=== PATIENT | male | born 1950 | race Caucasian/White ===

== ENCOUNTER 2020-01-24 09:56 | Emergency (ER) | payer MEDICARE ==
[2020-01-24] MEDS ORDERED: Ketorolac Tromethamine 30 MG/ML VIAL ONE (10:17)
[2020-01-24] MEDS ORDERED: Morphine 4 MG/ML VIAL ONE ×2 (10:17→12:41)
[2020-01-24] MEDS ORDERED: Ondansetron PF 4 MG/2 ML Vial ONE (10:28)
--- NOTE | 2020-01-24 13:29 | MRI ---
MRI LUMBAR SPINE WITHOUT CONTRAST: Date: )01/24/2020 INDICATION: Low back pain. Left leg weakness and numbness. FINDINGS: Lumbar vertebra maintain normal height and alignment. Degenerative disc and end plate changes are see n at all levels of the lumbar spine. Loss of disc space is most pronounced at T12-L1, L1-2, L2-3, and L5-S1. Prominent anterior and lateral osteophytes are seen from the lumbar vertebra. Findings at each disc level are described: T12-L1: Mild diffuse disc bulge. Facet hypertrophy. Mild central canal stenosis. L1-2: Posterior disc bulge and posterior osteophytes are present. These changes flatten the thecal s ac. Moderate facet hypertrophy. Mild to moderate central canal stenosis. Mild bilateral foraminal brad rowing. L2-3: There is a broad based disc bulge. There is a large disc extrusion paracentrally to the left w ith inferior migration along the posterior L3 vertebra on the left. This extruded disc fragment measu res 8-10 mm AP dimension in the axial plane below the disc space. There is facet and ligamentous hype rtrophy. Severe central canal stenosis at the disc space. Inferior to the disc space, the extruded di sc fragment results in moderate central canal stenosis with compression of the thecal sac anteriorly and to the left due to this extruded fragment migrating inferiorly. There is mild left foraminal stenosis secondary to asymmetric bulge and facet hypertrophy at the L2-3 level. L3-4: Broad based disc bulge. Moderate facet and ligamentous hypertrophy with posterior epidural fat . These changes result in moderate to severe central canal stenosis. Mild left foraminal encroachment . L4-5: Mild diffuse disc bulge. Moderate facet hypertrophy. Mild to moderate central canal stenosis. No significant foraminal stenosis. L5-S1: Loss of disc space with mild disc bulge and posterior osteophytes. These changes flatten the thecal sac, and combined with facet hypertrophy, result in mild to moderate central canal stenosis. T here is bilateral foraminal stenosis more severe on the left. IMPRESSION: 1. Multilevel degenerative disc changes. A large extruded disc at L2-3 on the left with inferior jefferson ration produces severe central canal stenosis described above. 2. Moderate to severe central canal stenosis also seen at L3-4. 3. Central canal and foraminal stenosis seen at other levels as described above. POS: AGW
== END 2020-01-24 14:57 | disposition home or self-care (01) ==
LOC: ERS 09:56
DX: M51.26 Other intervertebral disc displacement, lumbar region (principal); M48.061 Spinal stenosis, lumbar region without neurogenic claudication; F17.210 Nicotine dependence, cigarettes, uncomplicated
CPT/HCPCS: 72148; 96374; 96375; 96376; J1885; J2270; J2405

== ENCOUNTER 2020-01-30 06:07 | Outpatient (CLI) | payer MEDICARE, MEDICAID, OTHER ==
[2020-01-30 16:30] LABS: Hemoglobin 15.7 g/dL (14.0-18.0); Mean Corpuscular HGB CONC 32.3 g/dL (32.0-36.0); Mean Corpuscular Hemoglobin 33.1 pg (27.0-31.0); Platelet Count 293 thou/uL (130-400); RBC Distribution Width 12.2 % (11.5-14.5); Red Blood Cell (RBC) Count 4.75 mill/uL (4.70-6.10); White Blood Cell (WBC) Count 8.4 thou/uL (4.8-10.8)
[2020-01-30 17:28] LABS: Anion Gap 16 mmol/L (10-20); BUN (Urea Nitrogen) 8 mg/dL (8.4-25.7); Calc. Creatinine Clearance 0 mL/min (70-130); Calcium 8.7 mg/dL (7.8-10.44); Carbon Dioxide 23 mmol/L (23-31); Chloride 104 mmol/L (98-107); Estimated GFR-MDRD Greater than 90; Glucose 83 mg/dL (80-115); Potassium 4.3 mmol/L (3.5-5.1); Sodium 139 mmol/L (136-145)
[2020-01-31 13:55] LABS: SARS-CoV-2 MS2 Positive; SARS-CoV-2 N Gene Negative; SARS-CoV-2 S Gene Negative; SARS-CoV-2 by NAA Not Detected (NotDetected); SARS-CoV-2 orf1ab Negative
== END 2020-01-30 06:08 | disposition home or self-care (01) ==
LOC: LABBT 06:07
PROVIDERS: ATTEND Neurological Surgery
DX: Z01.812 Encounter for preprocedural laboratory examination (principal); Z11.59 Encounter for screening for other viral diseases; M54.16 Radiculopathy, lumbar region
CPT/HCPCS: 80048; 85027; U0003; 87635

== ENCOUNTER 2020-02-04 07:19 | Day surgery (SDC) | payer MEDICARE, MEDICAID ==
[2020-01-30 17:17] VITALS: BMI 21.4
[2020-02-04] MEDS ORDERED: Ketorolac Tromethamine 30 MG/ML VIAL ONE (09:51)
[2020-02-04] MEDS ORDERED: Succinylcholine Chloride 20 MG/ML 10 ml SYRINGE FS ONE (09:51)
[2020-02-04] MEDS ORDERED: PHENYLEPHRINE-NS 100 MCG/ML 10 ML SYRINGE ONE (09:51)
[2020-02-04] MEDS ORDERED: Dexamethasone 20 MG/5 ML VIAL ONE (09:51)
[2020-02-04] MEDS ORDERED: Lidocaine 1% PF 5 ML VIAL ONE (09:51)
[2020-02-04] MEDS ORDERED: PROPOFOL 200 MG/20 ML VIAL ONE (09:51)
[2020-02-04] MEDS ORDERED: Fentanyl 100 MCG/2 ML VIAL ONE ×2 (10:25→12:00)
--- NOTE | 2020-02-04 11:48 | OP ---
DATE OF PROCEDURE: 02/04/2020 CLINICAL PRODUCT SPECIALIST: Anneliese Owens PA-C PROCEDURE PERFORMED: Left L2-L3 microdiskectomy. DESCRIPTION OF PROCEDURE: The patient was brought to the operating room and intubated. He was rolled in the prone position on gel-filled chest rolls. An incision was made exposing left L2 and L3 and the level was confirmed by x-ray. We performed left L2-L3 hemilaminectomy via ligament, identified a fragmented left L2-L3 disk herniation, removed in multiple pieces. A complete decompression of left L3 was achieved. The wound was extensively irrigated and MAC hemostasis was secured. Vancomycin powder was applied and the wound was closed in anatomic layers. Job ID: [id number]
[2020-02-04] MEDS ORDERED: Tamsulosin HCl 0.4 MG CAP ONE (12:19)
--- NOTE | 2020-02-04 16:09 | EKG ---
Test Reason : PREOP Blood Pressure : / mmHG Vent. Rate : 070 BPM Atrial Rate : 070 BPM P-R Int : 174 ms QRS Dur : 084 ms QT Int : 376 ms P-R-T Axes : 073 018 036 degrees QTc Int : 406 ms Normal sinus rhythm Normal ECG Confirmed by HUNTER COBB ([id number]) on 02/04/2020 4:08:36 PM Referred By: DAVID Confirmed By:HUNTER COBB
== END 2020-02-04 13:40 | disposition home or self-care (01) ==
LOC: SDC 07:19
PROVIDERS: ATTEND Neurological Surgery
PROC: 0SB20ZZ Excision of Lumbar Vertebral Disc, Open Approach (ICD-10-PCS; principal; 2020-02-04)
PROC: 01NB0ZZ Release Lumbar Nerve, Open Approach (ICD-10-PCS; 2020-02-04)
DX: M51.16 Intervertebral disc disorders with radiculopathy, lumbar region (principal); F17.210 Nicotine dependence, cigarettes, uncomplicated
CPT/HCPCS: 76000; 93005; 93010; J1100; J1885; J2704; J3010; J3370

== ENCOUNTER 2024-02-01 13:57 | Emergency (ER) | payer MEDICARE ==
[~2024-02-01 13:57] MED LIST: Iopamidol-370 76% 500 ML MDV (1 ML CHARGE) ONE
[2024-02-01 14:44] LABS: #Basophils 0.05 10x3/uL (0.0-0.2); %Basophils 0.6 % (0.0-1.0); %Eosinophils 1.1 % (0.0-10.0); %Lymphocytes 20.2 % (21.0-51.0); %Monocytes 8.3 % (0.0-10.0); %Neutrophils 69.3 % (42.0-75.0); Hematocrit 47.5 % (42.0-52.0); Mean Corpuscular HGB CONC 33.7 g/dL (32.0-36.0); Mean Corpuscular Hemoglobin 33.9 pg (27.0-31.0); Mean Corpuscular Volume 100.6 fL (78.0-98.0); Mean Platelet Volume 8.8 fL (7.4-10.4); Platelet Count 282 10x3/uL (130-400); RBC Distribution Width 13.9 % (11.5-14.5); Red Blood Cell (RBC) Count 4.72 mill/uL (4.70-6.10)
[2024-02-01 15:01] LABS: ALT (SGPT) 11 U/L (8-55); AST (SGOT) 15 U/L (5-34); Albumin 3.9 g/dL (3.4-4.8); Alkaline Phosphatase 71 U/L (40-110); Anion Gap 16 mmol/L (10-20); BUN (Urea Nitrogen) 9 mg/dL (8.4-25.7); Bilirubin, Total 0.5 mg/dL (0.2-1.2); Calc. Creatinine Clearance 0 mL/min (70-130); Calcium 9.3 mg/dL (7.8-10.44); Carbon Dioxide 19 mmol/L (23-31); Chloride 105 mmol/L (98-107); Estimated GFR 94; Globulin 2.9 g/dL (2.4-3.5); Glucose 77 mg/dL (83-110); Potassium 4.2 mmol/L (3.5-5.1); Protein, Total 6.8 g/dL (5.8-8.1); Sodium 136 mmol/L (136-145)
[2024-02-01 16:42] LABS: Bilirubin Negative (Negative); Blood, Urine Negative (Negative); CAUTI Indications for Culture Pelvic or flank pain; Clarity Clear (Clear); Glucose, Urine (Dipstick) Normal (Negative); Ketone, Urine 60 mg/dL (Negative); Leukocyte Negative Leu/uL (Negative); Nitrite Negative (Negative); Protein, Urine (Dipstick) Negative (Neg-Trace); RBC/HPF 0-3 HPF (0-3); Specific Gravity, Urine 1.021 (1.002-1.036); Squamous Epithelial None Seen HPF (0-3); Urobilinogen Normal mg/dL (Less than 2); WBC/HPF 0-3 HPF (0-3); pH, Urine 6.5 (5.0-9.0)
[2024-02-01 16:44] LABS: Bacteria/HPF 1+ HPF (None Seen)
[2024-02-01 16:45] LABS: Urine Culture Reflex No No
== END 2024-02-01 18:42 | disposition home or self-care (01) ==
LOC: ERS 13:57
DX: R10.9 Unspecified abdominal pain (principal); M54.50 Low back pain, unspecified; F17.210 Nicotine dependence, cigarettes, uncomplicated; I10 Essential (primary) hypertension
CPT/HCPCS: 36415; 74177; 80053; 81001; 83605; 83690; 85025